=== PATIENT | female | born 1930 | race Caucasian/White ===

== ENCOUNTER 2018-06-07 11:24 | Inpatient (IN) | payer OTHER ==
[~2018-06-07] VITALS: Ht 160 cm; Wt 58.7 kg
[2018-06-07] MEDS ORDERED: PANTOPRAZOLE 80 MG in SODIUM CHLORIDE 0.9% 50 ML IVPB ONE (11:31)
[2018-06-07] MEDS ORDERED: SODIUM CHLORIDE FLUSH 10ML SYR IVF ONE (12:00)
[2018-06-07 12:10] LABS: BASOPHILS # (AUTO) 0.02 x10^3/uL (0-0.1); BASOPHILS % (AUTO) 0 % (0-1); EOSINOPHILS # (AUTO) 0.07 x10^3/uL (0-0.4); EOSINOPHILS % (AUTO) 1 % (1-7); LYMPHOCYTES # (AUTO) 1.03 x10^3/uL (1-3.4); LYMPHOCYTES % (AUTO) 11 % (22-44); MD NO; MEAN CORPUSCULAR HEMOGLOBIN 33.3 pg (27.0-34.8); MEAN CORPUSCULAR HGB CONC 33.8 g/dL (32.4-35.8); MEAN CORPUSCULAR VOLUME 98.6 fL (80-100); MEAN PLATELET VOLUME 8.7 fL (7.4-10.4); MONOCYTES # (AUTO) 0.84 x10^3/uL (0.2-0.8); MONOCYTES % (AUTO) 9 % (2-9); NEUTROPHILS # (AUTO) 7.57 x10^3/uL (1.8-6.8); NEUTROPHILS % (AUTO) 79 % (42-75); PLATELET COUNT 293 x10^3/uL (130-400); RED BLOOD COUNT 2.33 x10^6/uL (3.82-5.3)
[2018-06-07 12:16] LABS: MICROSCOPIC AUTO
[2018-06-07 12:20] LABS: CULTURE INDICATED? YES
[2018-06-07 12:22] LABS: ALANINE AMINOTRANSFERASE 26 U/L (12-78); ALBUMIN 3.7 g/dL (3.4-5.0); ANION GAP 7 mmol/L (5-15); CALCIUM 9.5 mg/dL (8.5-10.1); CHLORIDE 101 mmol/L (98-107); CREATININE 0.63 mg/dL (0.55-1.02)
[2018-06-07] MEDS: PANTOPRAZOLE 80 MG in SODIUM CHLORIDE 0.9% 100 ML IV SCH ×2 (12:22→19:17)
[2018-06-07 12:24] LABS: ALKALINE PHOSPHATASE 61 U/L (45-117); BILIRUBIN,TOTAL 0.3 mg/dL (0.2-1.0); TOTAL PROTEIN 7.5 g/dL (6.4-8.2)
[2018-06-07] MEDS ORDERED: ONDANSETRON ODT 4 MG PO ONE (12:30)
[2018-06-07] MEDS ORDERED: CEFTRIAXONE PMX 1GM/50ML 50 ML IV ONE (12:30)
[2018-06-07] MEDS ORDERED: MIDAZOLAM 1 MG/ML, 2ML ONE ×2 (12:34→13:25)
[2018-06-07] MEDS ORDERED: MORPHINE SULFATE 4 MG/ML, 1ML ONE (12:36)
[2018-06-07] MEDS: MORPHINE SULFATE 4 MG/ML, 1ML IVPush PRN (12:41)
[2018-06-07] MEDS ORDERED: ONDANSETRON ODT 4 MG ONE (12:45)
[2018-06-07] MEDS ORDERED: CEFTRIAXONE PMX 1GM/50ML 50 ML ONE (12:45)
[2018-06-07 13:11] LABS: PROTHROMBIN TIME 10.3 Seconds (9.6-11.5)
[2018-06-07] MEDS ORDERED: FENTANYL PF 100 MCG/2ML ONE (13:25)
[2018-06-07] MEDS ORDERED: CALC200T3 PO (14:04)
[2018-06-07] MEDS ORDERED: ASPI-496 PO (14:04)
[2018-06-07] MEDS ORDERED: ENALAPRILAT 1.25 MG/ML, 2ML IVPush PRN (14:30)
[2018-06-07] MEDS: morphine SULFATE 10 MG/ML, 1ML IVPush PRN ×2 (17:11→20:09)
[2018-06-07] MEDS: SODIUM CHLORIDE 0.9% 1,000 ML IV SCH (17:12)
[2018-06-07] MEDS: PANTOPRAZOLE 40 MG IV IVPush SCH (19:16)
[2018-06-07 19:27] VITALS: BP 126/54
[2018-06-07] MEDS: ARTIFICIAL TEARS 15 DROP/ML BOTTLE EACHEYE PRN (20:09)
[2018-06-07] MEDS ORDERED: CEFTRIAXONE PMX 1GM/50ML 50 ML IV SCH (20:30)
[2018-06-08] VITALS (8 sets, daily range): BP systolic 100–160; BP diastolic 42–65
[2018-06-08] MEDS: SODIUM CHLORIDE 0.9% 1,000 ML IV SCH (01:15)
[2018-06-08 02:34] LABS: ALANINE AMINOTRANSFERASE 20 U/L (12-78); ALBUMIN 2.9 g/dL (3.4-5.0); ANION GAP 8 mmol/L (5-15); CALCIUM 8.3 mg/dL (8.5-10.1); CHLORIDE 109 mmol/L (98-107); CREATININE 0.52 mg/dL (0.55-1.02)
[2018-06-08 02:37] LABS: ALKALINE PHOSPHATASE 51 U/L (45-117); BILIRUBIN,TOTAL 0.3 mg/dL (0.2-1.0)
[2018-06-08] MEDS: PANTOPRAZOLE 40 MG IV IVPush SCH ×2 (08:24→21:35)
[2018-06-08] MEDS ORDERED: MELO15TA24 PO (11:31)
[2018-06-08] MEDS ORDERED: LORA10TA62 PO (11:31)
[2018-06-08] MEDS ORDERED: TROS60CA3 PO (11:31)
[2018-06-08] MEDS ORDERED: LOSA25TA6 PO (11:31)
[2018-06-08] MEDS ORDERED: PRAV20TA2 PO (11:31)
[2018-06-08] MEDS ORDERED: ALPH50CA2 PO (11:31)
[2018-06-08] MEDS ORDERED: VIT1CAPS9 PO (11:31)
[2018-06-08] MEDS: MORPHINE SULFATE 4 MG/ML, 1ML IVPush PRN (12:04)
[2018-06-08] MEDS ORDERED: SODIUM CHLORIDE 0.9% 1,000 ML IV SCH (14:13)
[2018-06-08] MEDS: ACETAMINOPHEN 325 MG TABLET PO PRN (21:35)
[2018-06-09 02:01] VITALS: BP 117/63
[2018-06-09 02:32] LABS: ALBUMIN 2.5 g/dL (3.4-5.0); ANION GAP 8 mmol/L (5-15); CALCIUM 7.4 mg/dL (8.5-10.1); CHLORIDE 109 mmol/L (98-107)
[2018-06-09 02:36] LABS: ALANINE AMINOTRANSFERASE 17 U/L (12-78); ALKALINE PHOSPHATASE 45 U/L (45-117); BILIRUBIN,TOTAL 0.4 mg/dL (0.2-1.0); CREATININE 0.54 mg/dL (0.55-1.02); TOTAL PROTEIN 5.3 g/dL (6.4-8.2)
[2018-06-09 02:47] LABS: MEAN CORPUSCULAR HEMOGLOBIN 32.9 pg (27.0-34.8); MEAN CORPUSCULAR HGB CONC 33.6 g/dL (32.4-35.8); MEAN CORPUSCULAR VOLUME 97.8 fL (80-100); MEAN PLATELET VOLUME 9.3 fL (7.4-10.4); PLATELET COUNT 227 x10^3/uL (130-400); RED BLOOD COUNT 2.18 x10^6/uL (3.82-5.3); RED CELL DISTRIBUTION WIDTH 14.6 % (9.6-15.2)
[2018-06-09 03:01] LABS: BASOPHILS # (AUTO) 0.03 x10^3/uL (0-0.1); BASOPHILS % (AUTO) 0 % (0-1); EOSINOPHILS # (AUTO) 0.24 x10^3/uL (0-0.4); EOSINOPHILS % (AUTO) 3 % (1-7); LYMPHOCYTES # (AUTO) 1.87 x10^3/uL (1-3.4); LYMPHOCYTES % (AUTO) 23 % (22-44); MD SCAN; MONOCYTES # (AUTO) 0.81 x10^3/uL (0.2-0.8); MONOCYTES % (AUTO) 10 % (2-9); NEUTROPHILS # (AUTO) 5.08 x10^3/uL (1.8-6.8); NEUTROPHILS % (AUTO) 63 % (42-75)
[2018-06-09] MEDS: ACETAMINOPHEN 325 MG TABLET PO PRN ×4 (04:09→23:10)
[2018-06-09 07:25] VITALS: BP 138/67
[2018-06-09] MEDS: TEMPLATE NON-FORMULARY MED. (Alpha Lipoic Acid** 50 MG) HOMEMEDPO SCH (09:00)
[2018-06-09] MEDS: PANTOPRAZOLE 40 MG IV IVPush SCH (09:30)
[2018-06-09] MEDS: MULTIVITAMIN 1 TABLET PO SCH (09:31)
[2018-06-09] MEDS: LORATADINE 10 MG TABLET PO SCH (09:31)
[2018-06-09] MEDS: morphine SULFATE 10 MG/ML, 1ML IVPush PRN ×2 (09:31→21:24)
[2018-06-09] MEDS: AMOXICILLIN/CLAV 875-125MG TABLET PO SCH ×2 (09:31→21:04)
[2018-06-09] MEDS: DOXYCYCLINE 100MG TABLET PO SCH ×2 (09:31→21:04)
[2018-06-09] MEDS: CALCIUM CARBONATE 500 MG TAB.CHEW PO SCH (14:02)
[2018-06-09 14:30] VITALS: BP 125/54
[2018-06-09] MEDS: OMEPRAZOLE 20 MG CAPSULE.DR PO SCH (18:42)
[2018-06-09 19:22] VITALS: BP 128/64
[2018-06-09] MEDS: PRAVASTATIN 20 MG TABLET PO SCH (21:03)
[2018-06-10 01:11] VITALS: BP 154/63
[2018-06-10 02:21] LABS: BASOPHILS # (AUTO) 0.03 x10^3/uL (0-0.1); BASOPHILS % (AUTO) 1 % (0-1); EOSINOPHILS # (AUTO) 0.31 x10^3/uL (0-0.4); EOSINOPHILS % (AUTO) 4 % (1-7); LYMPHOCYTES # (AUTO) 0.37 x10^3/uL (1-3.4); LYMPHOCYTES % (AUTO) 5 % (22-44); MD NO; MEAN CORPUSCULAR HEMOGLOBIN 32.3 pg (27.0-34.8); MEAN CORPUSCULAR HGB CONC 33.4 g/dL (32.4-35.8); MEAN CORPUSCULAR VOLUME 96.7 fL (80-100); MEAN PLATELET VOLUME 9.1 fL (7.4-10.4); MONOCYTES # (AUTO) 0.15 x10^3/uL (0.2-0.8); MONOCYTES % (AUTO) 2 % (2-9); NEUTROPHILS # (AUTO) 6.41 x10^3/uL (1.8-6.8); NEUTROPHILS % (AUTO) 88 % (42-75); PLATELET COUNT 260 x10^3/uL (130-400); RED BLOOD COUNT 2.41 x10^6/uL (3.82-5.3); RED CELL DISTRIBUTION WIDTH 13.9 % (9.6-15.2)
[2018-06-10] MEDS: morphine SULFATE 10 MG/ML, 1ML IVPush PRN ×5 (02:52→21:36)
[2018-06-10] MEDS: ACETAMINOPHEN 325 MG TABLET PO PRN ×2 (03:10→17:10)
[2018-06-10 06:50] VITALS: BP 132/65
[2018-06-10] MEDS: AMOXICILLIN/CLAV 875-125MG TABLET PO SCH ×2 (07:52→21:32)
[2018-06-10] MEDS: MULTIVITAMIN 1 TABLET PO SCH (07:53)
[2018-06-10] MEDS: DOXYCYCLINE 100MG TABLET PO SCH ×2 (07:53→21:32)
[2018-06-10] MEDS: TEMPLATE NON-FORMULARY MED. (Alpha Lipoic Acid** 50 MG) HOMEMEDPO SCH (07:53)
[2018-06-10] MEDS: OMEPRAZOLE 20 MG CAPSULE.DR PO SCH ×2 (07:53→17:10)
[2018-06-10] MEDS: LORATADINE 10 MG TABLET PO SCH (07:53)
[2018-06-10] MEDS: CALCIUM CARBONATE 500 MG TAB.CHEW PO SCH (10:49)
[2018-06-10 13:23] VITALS: BP 125/57
[2018-06-10] MEDS ORDERED: CARB1TAB22 PO (18:12)
[2018-06-10] MEDS ORDERED: OMNIPAQUE 350 MG/ML, 100ML BOTTLE ONE (18:39)
[2018-06-10 19:45] VITALS: BP 96/55
[2018-06-10] MEDS: PRAVASTATIN 20 MG TABLET PO SCH (21:32)
[2018-06-11 02:20] LABS: BASOPHILS # (AUTO) 0.02 x10^3/uL (0-0.1); BASOPHILS % (AUTO) 0 % (0-1); EOSINOPHILS # (AUTO) 0.28 x10^3/uL (0-0.4); EOSINOPHILS % (AUTO) 4 % (1-7); LYMPHOCYTES # (AUTO) 0.78 x10^3/uL (1-3.4); LYMPHOCYTES % (AUTO) 11 % (22-44); MD NO; MEAN CORPUSCULAR HEMOGLOBIN 33.1 pg (27.0-34.8); MEAN CORPUSCULAR HGB CONC 33.8 g/dL (32.4-35.8); MEAN CORPUSCULAR VOLUME 98.1 fL (80-100); MEAN PLATELET VOLUME 8.6 fL (7.4-10.4); MONOCYTES # (AUTO) 0.72 x10^3/uL (0.2-0.8); MONOCYTES % (AUTO) 10 % (2-9); NEUTROPHILS # (AUTO) 5.22 x10^3/uL (1.8-6.8); NEUTROPHILS % (AUTO) 74 % (42-75); PLATELET COUNT 255 x10^3/uL (130-400); RED BLOOD COUNT 2.49 x10^6/uL (3.82-5.3); RED CELL DISTRIBUTION WIDTH 14.2 % (9.6-15.2)
[2018-06-11 02:23] VITALS: BP 144/66
[2018-06-11 02:31] LABS: ALANINE AMINOTRANSFERASE 41 U/L (12-78); ALBUMIN 2.6 g/dL (3.4-5.0); ANION GAP 7 mmol/L (5-15); CALCIUM 7.6 mg/dL (8.5-10.1); CHLORIDE 107 mmol/L (98-107); CREATININE 0.57 mg/dL (0.55-1.02)
[2018-06-11 02:33] LABS: ALKALINE PHOSPHATASE 78 U/L (45-117); BILIRUBIN,TOTAL 0.3 mg/dL (0.2-1.0); TOTAL PROTEIN 6.1 g/dL (6.4-8.2)
[2018-06-11] MEDS: morphine SULFATE 10 MG/ML, 1ML IVPush PRN ×2 (02:39→05:43)
[2018-06-11] MEDS: ARTIFICIAL TEARS 15 DROP/ML BOTTLE EACHEYE PRN (02:39)
[2018-06-11 07:10] VITALS: BP 127/63
[2018-06-11] MEDS: TEMPLATE NON-FORMULARY MED. (Alpha Lipoic Acid** 50 MG) HOMEMEDPO SCH (08:09)
[2018-06-11] MEDS: OMEPRAZOLE 20 MG CAPSULE.DR PO SCH ×2 (08:33→17:47)
[2018-06-11] MEDS: MULTIVITAMIN 1 TABLET PO SCH (08:33)
[2018-06-11] MEDS: AMOXICILLIN/CLAV 875-125MG TABLET PO SCH ×2 (08:33→20:48)
[2018-06-11] MEDS: DOXYCYCLINE 100MG TABLET PO SCH ×2 (08:33→20:49)
[2018-06-11] MEDS: MAGNESIUM HYDROXIDE 8%, 30ML UDC PO SCH (08:33)
[2018-06-11] MEDS: DOCUSATE 100 MG CAPSULE PO SCH ×2 (08:34→20:48)
[2018-06-11] MEDS: LORATADINE 10 MG TABLET PO SCH (08:34)
[2018-06-11] MEDS ORDERED: MAGNESIUM CITRATE 300ML ORAL SOL PO PRN (11:00)
[2018-06-11] MEDS: CALCIUM CARBONATE 500 MG TAB.CHEW PO SCH (11:47)
[2018-06-11 13:20] VITALS: BP 114/54
[2018-06-11 19:16] VITALS: BP 138/58
[2018-06-11] MEDS: PRAVASTATIN 20 MG TABLET PO SCH (20:48)
[2018-06-11] MEDS: ACETAMINOPHEN 325 MG TABLET PO PRN (20:49)
[2018-06-12 01:44] VITALS: BP 127/66
[2018-06-12] MEDS: ACETAMINOPHEN 325 MG TABLET PO PRN ×3 (03:28→20:38)
[2018-06-12] MEDS: morphine SULFATE 10 MG/ML, 1ML IVPush PRN (04:11)
[2018-06-12 07:15] VITALS: BP 123/63
[2018-06-12] MEDS: TEMPLATE NON-FORMULARY MED. (Alpha Lipoic Acid** 50 MG) HOMEMEDPO SCH (07:41)
[2018-06-12] MEDS: OMEPRAZOLE 20 MG CAPSULE.DR PO SCH ×2 (08:30→15:58)
[2018-06-12] MEDS: LORATADINE 10 MG TABLET PO SCH (08:31)
[2018-06-12] MEDS: AMOXICILLIN/CLAV 875-125MG TABLET PO SCH ×2 (08:31→20:37)
[2018-06-12] MEDS: DOCUSATE 100 MG CAPSULE PO SCH ×2 (08:32→20:38)
[2018-06-12] MEDS: MAGNESIUM HYDROXIDE 8%, 30ML UDC PO SCH (08:32)
[2018-06-12] MEDS: DOXYCYCLINE 100MG TABLET PO SCH ×2 (08:33→20:37)
[2018-06-12] MEDS: MULTIVITAMIN 1 TABLET PO SCH (08:33)
[2018-06-12] MEDS: LIDODERM 5% PATCH TD SCH (10:28)
[2018-06-12] MEDS: CALCIUM CARBONATE 500 MG TAB.CHEW PO SCH (11:08)
[2018-06-12 13:05] VITALS: BP 110/55
[2018-06-12] MEDS: CYCLOBENZAPRINE 10 MG TABLET PO PRN (16:03)
[2018-06-12 19:38] VITALS: BP 138/65
[2018-06-12] MEDS: PRAVASTATIN 20 MG TABLET PO SCH (20:37)
[2018-06-13] MEDS: morphine SULFATE 10 MG/ML, 1ML IVPush PRN (00:06)
[2018-06-13 02:14] VITALS: BP 143/70
[2018-06-13] MEDS: ACETAMINOPHEN 325 MG TABLET PO PRN ×2 (04:48→19:24)
[2018-06-13] MEDS: CYCLOBENZAPRINE 10 MG TABLET PO PRN ×3 (05:45→23:07)
[2018-06-13 05:48] LABS: BASOPHILS # (AUTO) 0.02 x10^3/uL (0-0.1); BASOPHILS % (AUTO) 0 % (0-1); EOSINOPHILS # (AUTO) 0.32 x10^3/uL (0-0.4); EOSINOPHILS % (AUTO) 5 % (1-7); LYMPHOCYTES # (AUTO) 0.57 x10^3/uL (1-3.4); LYMPHOCYTES % (AUTO) 9 % (22-44); MD NO; MEAN CORPUSCULAR HEMOGLOBIN 32.8 pg (27.0-34.8); MEAN CORPUSCULAR HGB CONC 33.6 g/dL (32.4-35.8); MEAN CORPUSCULAR VOLUME 97.7 fL (80-100); MEAN PLATELET VOLUME 9.1 fL (7.4-10.4); MONOCYTES # (AUTO) 0.54 x10^3/uL (0.2-0.8); MONOCYTES % (AUTO) 9 % (2-9); NEUTROPHILS # (AUTO) 4.72 x10^3/uL (1.8-6.8); NEUTROPHILS % (AUTO) 76 % (42-75); PLATELET COUNT 257 x10^3/uL (130-400); RED BLOOD COUNT 2.49 x10^6/uL (3.82-5.3); RED CELL DISTRIBUTION WIDTH 14.1 % (9.6-15.2)
[2018-06-13 07:23] VITALS: BP 117/80
[2018-06-13 07:41] VITALS: BP 143/67
[2018-06-13] MEDS: DOCUSATE 100 MG CAPSULE PO SCH ×2 (09:00→19:17)
[2018-06-13] MEDS: LIDODERM 5% PATCH TD SCH (09:00)
[2018-06-13] MEDS: TEMPLATE NON-FORMULARY MED. (Alpha Lipoic Acid** 50 MG) HOMEMEDPO SCH (09:00)
[2018-06-13] MEDS: MAGNESIUM HYDROXIDE 8%, 30ML UDC PO SCH ×2 (09:00→09:27)
[2018-06-13] MEDS: OMEPRAZOLE 20 MG CAPSULE.DR PO SCH ×2 (09:27→17:10)
[2018-06-13] MEDS: MULTIVITAMIN 1 TABLET PO SCH (09:27)
[2018-06-13] MEDS: LORATADINE 10 MG TABLET PO SCH (09:27)
[2018-06-13] MEDS: DOXYCYCLINE 100MG TABLET PO SCH ×2 (09:27→19:17)
[2018-06-13] MEDS: CEFDINIR 300 MG CAPSULE PO SCH ×2 (09:27→19:17)
[2018-06-13] MEDS: CALCIUM CARBONATE 500 MG TAB.CHEW PO SCH (12:38)
[2018-06-13 14:30] VITALS: BP 102/56
[2018-06-13 18:53] VITALS: BP 117/69
[2018-06-13] MEDS: PRAVASTATIN 20 MG TABLET PO SCH (19:17)
[2018-06-14 01:09] VITALS: BP 124/67
[2018-06-14] MEDS: ACETAMINOPHEN 325 MG TABLET PO PRN ×2 (04:33→12:36)
[2018-06-14 07:37] VITALS: BP 135/57
[2018-06-14] MEDS: CEFDINIR 300 MG CAPSULE PO SCH (08:20)
[2018-06-14] MEDS: LORATADINE 10 MG TABLET PO SCH (08:20)
[2018-06-14] MEDS: OMEPRAZOLE 20 MG CAPSULE.DR PO SCH (08:20)
[2018-06-14] MEDS: MULTIVITAMIN 1 TABLET PO SCH (08:21)
[2018-06-14] MEDS: MAGNESIUM HYDROXIDE 8%, 30ML UDC PO SCH (08:21)
[2018-06-14] MEDS: DOCUSATE 100 MG CAPSULE PO SCH (08:21)
[2018-06-14] MEDS: TEMPLATE NON-FORMULARY MED. (Alpha Lipoic Acid** 50 MG) HOMEMEDPO SCH (08:21)
[2018-06-14] MEDS: DOXYCYCLINE 100MG TABLET PO SCH (08:21)
[2018-06-14] MEDS ORDERED: CEFD300C37 PO (12:05)
[2018-06-14] MEDS ORDERED: OMEP-110 PO (12:05)
[2018-06-14] MEDS: CALCIUM CARBONATE 500 MG TAB.CHEW PO SCH (12:35)
[2018-06-14 14:12] VITALS: BP 130/75
== END 2018-06-14 17:00 | DRG 377 ==
LOC: ED 13:00 → EDIP 13:03 → 3NE 15:11
PROVIDERS: ADMIT Internal Medicine; ATTEND Internal Medicine
PROC: 0DJ08ZZ Inspection of Upper Intestinal Tract, Via Natural or Artificial Opening Endoscopic (ICD-10-PCS; principal; 2018-06-07 13:15)
PROC: 30233N1 Transfusion of Nonautologous Red Blood Cells into Peripheral Vein, Percutaneous Approach (ICD-10-PCS; 2018-06-08)
DX: K26.4 Chronic or unspecified duodenal ulcer with hemorrhage (principal); J18.9 Pneumonia, unspecified organism; D62 Acute posthemorrhagic anemia; N39.0 Urinary tract infection, site not specified; Z79.82 Long term (current) use of aspirin; M81.0 Age-related osteoporosis without current pathological fracture; M19.90 Unspecified osteoarthritis, unspecified site; E78.5 Hyperlipidemia, unspecified; I10 Essential (primary) hypertension; I34.0 Nonrheumatic mitral (valve) insufficiency; Z88.2 Allergy status to sulfonamides; Z88.8 Allergy status to other drugs, medicaments and biological substances; K29.71 Gastritis, unspecified, with bleeding; H35.30 Unspecified macular degeneration; I25.10 Atherosclerotic heart disease of native coronary artery without angina pectoris; B96.1 Klebsiella pneumoniae [K. pneumoniae] as the cause of diseases classified elsewhere; K59.00 Constipation, unspecified; Z88.1 Allergy status to other antibiotic agents; Z90.710 Acquired absence of both cervix and uterus; Z96.649 Presence of unspecified artificial hip joint; Z96.659 Presence of unspecified artificial knee joint; Z90.49 Acquired absence of other specified parts of digestive tract; M54.9 Dorsalgia, unspecified; R73.9 Hyperglycemia, unspecified; Z79.899 Other long term (current) drug therapy
CPT/HCPCS: 36415; 36430; 71045; 74022; 74177; 80053; 81001; 83605; 85014; 85018; 85025; 85610; 85730; 86677; 86850; 86900; 86923; 87040; 87077; 87086; 87186; 93005; 96374; 96375; G0378; J0696; Q0162; Q9967; C9113; J2270; J7030; P9016